=== PATIENT | male | born 1945 | race Caucasian/White ===

== ENCOUNTER → 2016-05-02 | Outpatient (CLI) | payer OTHER | LOC: SBRMNEURO 20:00 | PROVIDERS: ATTEND Psychiatry & Neurology Sleep Medicine | DX: G47.33 Obstructive sleep apnea (adult) (pediatric) (principal); G47.61 Periodic limb movement disorder ==

== ENCOUNTER 2018-03-25 11:24 | Inpatient (IN) | payer OTHER ==
[2018-03-25] MEDS ORDERED: TEMAZEPAM 15 MG CAP PO PRN ×2 (11:35→17:38)
[2018-03-25] MEDS ORDERED: diphenhydrAMINE 25 MG CAP PO ONE ×2 (11:35→12:02)
[2018-03-25] MEDS ORDERED: ACETAMINOPHEN 325 MG TAB PO PRN (11:35)
[2018-03-25] MEDS ORDERED: ASPIRIN EC 325 MG TAB PO ONE ×2 (11:35→12:03)
[2018-03-25] MEDS ORDERED: DIAZEPAM 5 MG TAB PO ONE (11:35)
[2018-03-25] MEDS ORDERED: NS 1,000 ML IV SCH ×2 (11:35→17:45)
[2018-03-25] MEDS ORDERED: FAMOTIDINE 20 MG TAB PO ONE (11:35)
[2018-03-25] MEDS ORDERED: NITROGLYCERIN 0.4 MG BTL SL PRN (11:35)
[2018-03-25] MEDS ORDERED: FAMOTIDINE 20 MG TAB ONE (12:03)
[2018-03-25] MEDS ORDERED: DIAZEPAM 5 MG TAB ONE (12:03)
[2018-03-25 12:11] LABS: PLATELET COUNT 223 10^3/uL (150-400)
[2018-03-25 12:22] LABS: INR 0.97 (0.83-1.16); PROTIME(PATIENT) 13.1 SEC (12.0-15.0)
[2018-03-25] MEDS ORDERED: VERAPAMIL 5 MG/2 ML VIAL ONE (13:54)
[2018-03-25] MEDS ORDERED: LIDOCAINE 1% 300 MG/30 ML SDV ONE (13:54)
[2018-03-25] MEDS ORDERED: fentaNYL 100 MCG/2 ML INJ ONE ×2 (13:54→15:12)
[2018-03-25] MEDS ORDERED: MIDAZOLAM 2 MG/2 ML VIAL ONE ×2 (13:54→15:20)
[2018-03-25] MEDS ORDERED: HEPARIN 10,000 UNIT/10 ML MDV (1,000 UNIT/ML) ONE (13:55)
[2018-03-25] MEDS ORDERED: IOPAMIDOL (ISOVUE-370) 150 ML BTL IV ONE (13:55)
--- NOTE | 2018-03-25 14:30 | PDPROPOC ---
Sedation Plan of Care Sedation Plan of Care: vital signs stable, mental status noted, patient educated of risks, benefits, alternatives, patient can tolerate sedation ASA Classification: ASA 3 Planned drugs: fentanyl, midazolam Mallampati Score: Class 2 Mallampati Reference Image: Patient passed 3-3-2 rule?: Yes
--- NOTE | 2018-03-25 14:34 | PDHPUP ---
History & Physical Update H&P update statement: This history and physical update is based on an assessment of the patient which was completed after admission or registration (within 24 hours), but prior to the surgery/procedure. H&P update: H&P reviewed & patient examined, no change in patient's condition since H&P completed
--- NOTE | 2018-03-25 14:38 | PDDXCAT ---
Diagnostic Cath Note - . Date: 03/25/18 Cad Administrator: Jean Claude Indication: CCC Class III and IV angina on medical treatment, other ( intermittent risk stress test) - Procedure Access: left wrist Procedure: left heart catheterization, coronary angiography - Materials Left Heart Cath size: 5F Left Heart Cath materials: JL3.5, JR4.0 - Findings-Left Heart Catheterization LM: The left main is 5mm in size and bifurcates into a LAD and Circumflex system. There is a 40% stenosis in the mid left main vessel. LAD: The LAD is a 3 mm vessel proximally with a 40-50% stenosis of the proximal vessel. There is a robust collateral to the PDA. There is JOSH III flow to the distal vessel. LCX: The left circumflex is a 3.5 mm vessel and gives rise to an important obtuse marginal branch no flow limiting obstruction is identiifed. RCA: The right coronary artery is dominant. There is a 99% obstruction in the RCA distal to the PLV. There is JOSH I flow. There is incomplete opacification of the distal vessel likely secondary to competitive flow to the distal RCA. EDP: 14mmHg LVEF: 75% Wall motion: On the LV gram there is normal LV systolic function. The EF is 75% . There are no resting segmental wall motion abnormalities. 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 There is a 5- 10mm gradient on pullback across the aortic valve. There is no evidence of mo dissection or aneurysm formation of the thoracic aorta. - Findings-Right Heart Catheterization AO: Complications: An acute closure of the RV marginal branch after deployment of the stent. Estimated blood loss: <50ml Closure method: TR Band Assessment: The patient has a dominant right coronary system with a tight 99% lesion in the mid segment of the RCA near the take off of a small RV branch. The RCA is collateralized from the distal LAD likely secondary to a chronic obstruction in the RCA. Plan: The patient was orally bolused with Effient 60mg and should receive 10mg daily along with Aspirin 81 mg to be continued for be continued for at least 1 year following drug eluting stent implantation. No elective surgery for the first 3 months. Decisions to stop dual antiplatelet therapy before 1 year should involve our office [facility] . Intervention: A 5 Korean JR4 guiding catheter was used for guide catheter support. A 0.014" 180 cm Intuition Wire was advanced across the lesion in question under direct fluoroscopic and angiographic guidance. A 2.5 x 12mm Emerge balloon was advanced over the lesion in the distal RCA and was stented with a 4.0 x 12mm Synergy drug eluting stent. After deployment of the stent there was an acute closure of the RV branch. A 4.0 x 32mm Synergy stent was then deployed to the Proximal RCA in the event that there had been a guide or stent deployment related dissection. There was evidence of a probable dissection of the RCA distal to the first stent. There was a 4.0 x 12m Synergy stent deployed to the mid RCA at the site of arterial dissection. There was 0% residual post stent implantation with improvement in flow from JOSH I to JOSH III flow post stent implantation. The patient after stent deployment became immediately unstable with bradycardia and hypotension requiring atropine a temporary pacer and IV saline fluid resuscitation for probable RV injury as well as immediate Dopamine support. There were EKG changes suggestive of inferior injury with right sided leads suggestive of RV infarction. The echo showed RV dysfunction and inferior LV hypokinesis. post stent implantation IVUS shoed that the stents were deployed adequately with no evidence of proximal or distal dissection and there was JOSH III flow to the distal RCA PDA and PLV branches. The patient will be admitted to the ICU in serious but stable condition. Troponins will be trended for diagnostic purposes as well as EKG BNP levels, and he will be carefully monitored for tachy and azeb dysrhythmia.
[2018-03-25] MEDS ORDERED: IOPAMIDOL (ISOVUE-300) 150 ML BTL ONE (15:27)
[2018-03-25] MEDS ORDERED: NITROGLYCERIN 1,500 MCG/15 ML VIAL MISC ONE (15:39)
--- NOTE | 2018-03-25 15:55 | CPEKG ---
Test Reason : OPEN Blood Pressure : / mmHG Vent. Rate : 062 BPM Atrial Rate : 062 BPM P-R Int : 174 ms QRS Dur : 093 ms QT Int : 419 ms P-R-T Axes : 070 063 071 degrees QTc Int : 426 ms Sinus rhythm Confirmed by Itz Conklin ([id number]) on 03/25/2018 3:55:23 PM Referred By: Confirmed By:Itz Conklin
[2018-03-25] MEDS ORDERED: PRASUGREL HCL 10 MG TAB ONE (16:13)
[2018-03-25] MEDS ORDERED: ONDANSETRON 4 MG/2 ML VIAL IVP PRN (17:25)
[2018-03-25] MEDS ORDERED: HYDROCODONE/APAP 5/325 TAB PO PRN (17:38)
[2018-03-25] MEDS ORDERED: LORazepam 2 MG/ML INJ IVP PRN (17:38)
[2018-03-25] MEDS ORDERED: ATROPINE SULFATE 1 MG/10 ML SYR IVP PRN (17:38)
[2018-03-25] MEDS ORDERED: PRASUGREL HCL 10 MG TAB PO ONE (17:38)
[2018-03-25] MEDS ORDERED: FLUTICASONE NASAL 120 SPRAYS/16 GM MDI EACHNARE PRN (17:53)
[2018-03-25 18:47] LABS: CREATINE KINASE 78 IU/L (0-224)
--- NOTE | 2018-03-25 20:07 | PDMN ---
Medical Necessity Medical necessity: MCG M230 PR: 2 days OP: LHC, angio, ELIF to RCA X 2
[2018-03-25] MEDS ORDERED: ATORVASTATIN CALCIUM 40 MG TAB PO SCH (21:00)
[2018-03-25] MEDS ORDERED: PRAVASTATIN SODIUM 20 MG TAB PO SCH (21:00)
[2018-03-25] MEDS: MELATONIN 3 MG TAB PO SCH (22:57)
[2018-03-25] MEDS: FAMOTIDINE 20 MG TAB PO SCH (22:57)
[2018-03-26 00:32] LABS: CREATINE KINASE 207 IU/L (0-224)
[2018-03-26 06:14] LABS: PLATELET COUNT 191 10^3/uL (150-400)
[2018-03-26 06:28] LABS: CREATINE KINASE 393 IU/L (0-224)
[2018-03-26] MEDS: FAMOTIDINE 20 MG TAB PO SCH ×2 (07:59→21:21)
--- NOTE | 2018-03-26 09:53 | CPEKG ---
Test Reason : OPEN Blood Pressure : / mmHG Vent. Rate : 063 BPM Atrial Rate : 064 BPM P-R Int : 199 ms QRS Dur : 093 ms QT Int : 429 ms P-R-T Axes : 080 074 073 degrees QTc Int : 440 ms Sinus rhythm Confirmed by Itz Conklin ([id number]) on 03/26/2018 9:52:53 AM Referred By: Confirmed By:Itz Conklin
--- NOTE | 2018-03-26 09:57 | CPEKG ---
Test Reason : OPEN Blood Pressure : / mmHG Vent. Rate : 054 BPM Atrial Rate : 054 BPM P-R Int : 178 ms QRS Dur : 091 ms QT Int : 404 ms P-R-T Axes : 070 060 064 degrees QTc Int : 383 ms Sinus rhythm Minimal ST elevation, inferior leads Confirmed by Itz Conklin ([id number]) on 03/26/2018 9:56:38 AM Referred By: Confirmed By:Itz Conklin
[2018-03-26] MEDS: PANTOPRAZOLE SODIUM 40 MG TAB PO SCH ×2 (10:02→21:21)
[2018-03-26] MEDS: PRASUGREL HCL 10 MG TAB PO SCH (10:03)
[2018-03-26] MEDS: buPROPion XL 150 MG TAB PO SCH (10:03)
[2018-03-26] MEDS: PRAVASTATIN SODIUM 20 MG TAB PO SCH (10:03)
[2018-03-26] MEDS: ASPIRIN EC 325 MG TAB PO SCH (10:03)
--- NOTE | 2018-03-26 13:59 | ASMTCMCOM ---
CM Note CM Note Notes: 03/26/2018 Case Management Note Pt admitted for left heart cath and coronary angiography. There are no identified case management d/c needs d/t pt age, independence with ADL's prior to admission and marital status. There are no therapy evals ordered at this time. Anticipating independent discharge with follow up as directed. Case Management d/c poc: to be determined. Case Management to follow. Date Signed: 03/26/2018 01:58 PM Electronically Signed By:Gladis Castillo RN
--- NOTE | 2018-03-26 16:52 | PDCARPN ---
Cardiology Progress Note Chief Complaint: angina, now post stent for RCA obstruction Assessment/Plan: Assessment:Patient with abnormal stress test and angina, underwent RCA stent complicated by hypotension, transient heart block and ST elevation as well as compromise of flow to the RV marginal branch with right heart stunning and inferior wall motion abnormalities on cath. I have reviewed the echo from today with resolution of the wall motion abnormalities. The troponin peaked at 7.6 ng/ ml consistent with minimal damage to the myocardium. His rhythm on tele is stable and the art line and the temp pacing wire were removed in less than 25 minutes of bedside time Plan:As above. 03/26/18 16:44 Subjective: I feel great. Reviewed/Discussed With: family, hospitalist, multidisciplinary team Time Spent with Patient: greater than 25 minutes Time Spent with Patient: Greater than 25 minutes spent on this patients care, greater than 50% of time spent counseling, educating, and coordinating care regarding the above mentioned plan. Objective: Vital Signs (8 Hrs) Temp Pulse Resp BP Pulse Ox 03/26/18 15:36 36.5 C 62 17 106/62 97 03/26/18 14:00 65 16 110/67 97 03/26/18 12:00 56 L 20 111/70 100 03/26/18 10:00 55 L 18 110/65 99 03/26/18 09:00 57 L 17 122/56 H 99 Intake/Output (24 Hrs) 03/25/18 03/26/18 03/27/18 05:59 05:59 05:59 Intake Total 1692.4 Output Total 2300 Balance -607.6 Intake: Oral (ml) 700 IV Infused (ml) 992.4 DOPamine/DEXTROSE 250 ml 116.4 @ Titrate IV CONT CANDIDO Rx# :[id number] Ns 1,000 ml @ 75 mls/hr 876 IV CONT CANDIDO Rx#: [id number] Output: Urine (ml) 2300 Catheter 2200 Urinal 100 Other: Weight 70.8 kg 88.9 kg Bladder Scan Volume (ml) Urinal 700 Post Void Residual Scan Volume (ml) Catheter 79 Result Diagrams: 03/26/18 05:55 03/26/18 05:55 Cardiac Labs: Cardiac Lab Results (72 Hrs) 03/26/18 03/26/18 03/26/18 11:35 05:55 00:10 CK-MB (CK-2) Fraction 50.90 H 22.70 H Troponin I 7.060 H 7.600 H 3.350 H 03/25/18 18:20 CK-MB (CK-2) Fraction 2.64 Troponin I 0.140 H EKG: EKG changes have resolved. Telemetry: occasional extrasystoles one 3 beat run Echocardiogram: No new wall motion abnormalities. - Physical Exam Constitutional: WDWN, no apparent distress Eyes: PERRL, EOMI, anicteric sclera Ears, Nose, Mouth, Throat: moist mucous membranes Cardiovascular: regular rate and rhythm, no murmurs, no rubs, no gallops Respiratory: clear to auscultate bilat Gastrointestinal: normoactive bowel sounds Skin: no rashes Musculoskeletal: no muscular tenderness Neurologic: AAOx3 Psychiatric: cooperative, following commands - . Pending Discharge Within 24 Hours: Yes Pending Discharge Within 48 Hours: No ICD10 Worksheet Patient Problems: Problems Problem Status Onset Coronary artery disease Acute - ICD10 Problem Qualifiers (1) Coronary artery disease
--- NOTE | 2018-03-26 17:20 | ECHO ---
[email or web address] [address] Main: [phone] Fax: Transthoracic Echocardiogram Name: HERNAN SCHWARZ MR#: [id number] Study Date: 03/26/2018 Study Time: 08:31 AM Date of : 1945 Age: 72 year(s) Height: 177.8 cm (70 in.) Weight: 88.45 kg (195 lb.) BSA: 2.06 m2 Gender: Male Examination: Echo Indication: S/P PCI RCA Image Quality: Contrast: Requested by: Robel Terrazas BP: 106 mmHg/67 mmHg Heart Rate: Rhythm: Normal sinus rhythm Indication: S/P PCI RCA Procedure Staff Ground Worker: Obie Moreau RDCS Reading Physician: Bobby Silverio MD Requesting Provider: Measurements: Chambers Valvular Assessment AV/MV Valvular Assessment TV/PV Normal Normal Normal Name Value Range Name Value Range Name Value Range Ao Milady (MM): 3.7 cm (2.2 cm-3.7 TR Vmax: 2.42 mm/s ( - ) cm) TR PGmax: 23 mmHg ( - ) IVSd (2D): 0.7 cm (0.6 cm-1.1 syst. PAP: 28 mmHg ( - ) cm) PV Vmax: 0.86 m/s (0.6 m/s-0.9 LVDd (2D): 5.1 cm (4.2 cm-5.9 m/s) cm) PV PGmax: 3 mmHg ( - ) LVDs (2D): 3.2 cm (2.1 cm-4 cm) LVPWd (2D): 0.8 cm (0.6 cm-1 cm) LVEF (2D): 65 (>=54 %) Continued Measurements: Valvular Assessment TV/PV Name Value CVP (est.): 5 mmHg Findings: Left Ventricle: Normal size left ventricle. No LV hypertrophy. Normal global systolic LV function. EF is 65 %. No regional wall motion abnormality. Right Ventricle: Normal size right ventricle. Normal RV function. There is no pacemaker lead noted in the right ventricle. Patient: HERNAN SCHWARZ Study Date: 03/26/2018 Page 1 of 2 08:31 AM Left Atrium: The left atrium is normal in size. Right Atrium: The right atrium is normal in size. Mitral Valve: The mitral valve is normal in appearance and function. There is no significant mitral valve regurgitation. Aortic Valve: The aortic valve is normal in appearance and function. There is no aortic valve regurgitation. Tricuspid Valve: The tricuspid valve appears normal. Trivial tricuspid valve regurgitation. The pulmonary artery pressure is normal. Pulmonic Valve: The pulmonic valve is normal in appearance and function. Aorta: The aorta is normal. Pericardium: No pericardial effusion. (No Signature Object) Patient: HERNAN SCHWARZ Study Date: 03/26/2018 Page 2 of 2 08:31 AM [id number]
[2018-03-26] MEDS: MELATONIN 3 MG TAB PO SCH (21:21)
--- NOTE | 2018-03-26 23:04 | CPEKG ---
Test Reason : Post heart cath Blood Pressure : / mmHG Vent. Rate : 083 BPM Atrial Rate : 083 BPM P-R Int : 183 ms QRS Dur : 105 ms QT Int : 410 ms P-R-T Axes : 077 082 089 degrees QTc Int : 482 ms Sinus rhythm Inferior infarct, acute (RCA) Probable RV involvement, suggest recording right precordial leads Confirmed by Itz Conklin ([id number]) on 03/26/2018 11:03:39 PM Referred By: Confirmed By:Itz Conklin
--- NOTE | 2018-03-26 23:04 | CPEKG ---
Test Reason : chest pain s/p stent Blood Pressure : / mmHG Vent. Rate : 083 BPM Atrial Rate : 083 BPM P-R Int : 184 ms QRS Dur : 108 ms QT Int : 417 ms P-R-T Axes : 073 082 089 degrees QTc Int : 490 ms Sinus rhythm Inferior infarct, acute (RCA) Probable RV involvement, suggest recording right precordial leads Confirmed by Itz Conklin ([id number]) on 03/26/2018 11:03:47 PM Referred By: Confirmed By:Itz Conklin
[2018-03-27] MEDS: FAMOTIDINE 20 MG TAB PO SCH (08:10)
[2018-03-27] MEDS: PANTOPRAZOLE SODIUM 40 MG TAB PO SCH (08:10)
[2018-03-27] MEDS: PRAVASTATIN SODIUM 20 MG TAB PO SCH (08:10)
[2018-03-27] MEDS: buPROPion XL 150 MG TAB PO SCH (08:10)
[2018-03-27] MEDS: ASPIRIN EC 325 MG TAB PO SCH (08:15)
[2018-03-27] MEDS: PRASUGREL HCL 10 MG TAB PO SCH (08:15)
[2018-03-27 15:32] VITALS: BP 112/89
--- NOTE | 2018-03-27 17:03 | ASMTLACE ---
LACE Length of stay for Answers: 2 days current admission Acuity / Level of Answers: Yes Care: Did the patient have an inpatient admission? Comorbidities - select Answers: Previous myocardial all that apply infarction # of Emergency department Answers: 0 visits in the last 6 months Score: 6 Date Signed: 03/27/2018 05:02 PM Electronically Signed By:TARUN Mcdonald
--- NOTE | 2018-03-27 17:04 | ASMTCMCOM ---
CM Note CM Note Notes: Pt is being d/c'd today. Pt does not have any needs from CM. CM available for changes. Date Signed: 03/27/2018 05:04 PM Electronically Signed By:TARUN Mcdonald
--- NOTE | 2018-03-27 17:27 | GDS ---
ADMISSION DIAGNOSIS: 1. Angina pectoris. 2. Coronary artery disease. 3. Abnormal stress test. DISCHARGE DIAGNOSIS: 1. Coronary artery disease status post percutaneous transluminal coronary angioplasty and stent plac ement of the [place] right coronary artery with the use of 3 overlapping stents in the right coronary artery as detailed in the cardiac procedure note. 2. Dyslipidemia. 3. Angina pectoris, resolved. 4. Coronary artery disease. HISTORY OF PRESENT ILLNESS: For detailed history of present illness, please see the recently dictate galilea Stevenson and Pam. Briefly, this is a 72-year-old male with a history of chest discomfort, pressure, and tig htness that occurs with exertion. He underwent a stress test, which was found to be abnormal. He wa s admitted to the hospital electively for cardiac catheterization, found to have a critical lesion of the RCA proper with inflation and stenting of the vessel. There was a side branch occlusion of RV b ranch associated with hypotension. Brief high-grade AV block lasting less than 10 seconds or so with hypotension requiring atropine and an emergent temporary pacer from the right groin approach. The p atient had evidence of probable proximal and distal dissection, which were treated with stents in ove rlapping fashion with subsequent resolution of the patient's chest pain and transient ST-segment elev ation as well as echocardiographic evidence of myocardial injury. His troponin peaked to 7.6. HOSPITAL COURSE: The patient was admitted ICU on a precautionary measure. The temporary wire was di scontinued on the following hospital day. He was kept for another 24 hours overnight. His heart rhy thm monitored. At the time of discharge from the hospital he is medically stable and ready for disch arge home. His distal pulses are intact and his groin and wrist site are healing nicely without evid ence of significant hematoma. DISCHARGE MEDICATIONS: Are to include Effient 10 mg p.o. daily. Pravastatin 20 mg p.o. daily. Zant ac 150 p.o. twice daily, aspirin 81 mg daily. He is to take the combination of Effient and aspirin f or at least 12 months following stent implantation. He could be considered for aspirin and Plavix in combination after 30 days of aspirin and Effient therapy. He is to continue his Pravachol as well a s Protonix 20 mg p.o. twice daily, Wellbutrin 150 p.o. daily, and ranitidine 150 p.o. twice daily. He is also on Flonase spray which can be continued. He takes a variety of different medications that i nclude omega-3 fatty acids. His isosorbide mononitrate can be discontinued unless he has recurrent a ngina, Zyrtec 10 mg as needed for allergies, vitamin D3, and vitamin B12 as directed. His activity is to be limited by groin and wrist precautions. He is to follow up with Dr. Barnes as s jaime and return to the emergency department should he experience chest pain, pressure, tightness, palpitations, syncope, near syncope, or other clinical symptoms of concern. /[id number]/MODL
--- NOTE | 2018-04-01 10:28 | PQFORM ---
PHYSICIAN QUERY FORM Needs Your Response This query form is being sent to you to assure this patient record is coded properly. Please respond to the question below: DERRICK BARGE OPERATOR QUESTION: Dear Dr. Silverio, On your discharge summary you indicate the brief high-grade AV block and hypotension which resulted in transient ST-segment elevation as well as echocardiographic evidence of myocardial injury and transient troponin elevation peaking at 7.6. Based on these clinical findings and your professional judgment, can a diagnosis of inferior ST- segment myocardial infarction be added to the discharge summary? yes no other I THINK IT WOULD BE BEST TO DESCRIBE A SUBENDOCARDIAL MYOCARDIAL INFARCTION THERE WAS TRANSIENT VESSEL CLOSURE DURING THE PROCEDURE...MIGHT BE BETTER FOR CODING PURPOSES BUT WORSE FOR COMPLICATION RATE OF CATH PROCEDURE.... THE ST SEGMENT CHANGES ON EKG WERE ALSO TRANSIENT AND RESOLVED WITHOUT FURTHER INTERVENTION Thank you for clarifying, SHARI Louis HIM Coding INSTRUCTIONS FOR RESPONSE: Answer question by clicking on the "Edit Document" button. Move cursor to area below the stars. When complete, hit "Save." Click on the "Sign" button, then click "Sign" again. Type in your PIN and hit "Enter." MTDD
== END 2018-03-27 18:08 | disposition home or self-care (01) | DRG 247 ==
LOC: FCATH 11:24 → OBSVTOIN 16:53 → F2N 16:53 → F2W 03-26 18:25
PROVIDERS: ADMIT Internal Medicine Cardiovascular Disease; ATTEND Internal Medicine Cardiovascular Disease
PROC: B2151ZZ Fluoroscopy of Left Heart using Low Osmolar Contrast (ICD-10-PCS; principal; 2018-03-25)
PROC: B2111ZZ Fluoroscopy of Multiple Coronary Arteries using Low Osmolar Contrast (ICD-10-PCS; principal; 2018-03-25)
PROC: 027036Z Dilation of Coronary Artery, One Artery with Three Drug-eluting Intraluminal Devices, Percutaneous Approach (ICD-10-PCS; principal; 2018-03-25)
PROC: 4A023N7 Measurement of Cardiac Sampling and Pressure, Left Heart, Percutaneous Approach (ICD-10-PCS; principal; 2018-03-25)
DX: I21.4 Non-ST elevation (NSTEMI) myocardial infarction (principal); I25.119 Atherosclerotic heart disease of native coronary artery with unspecified angina pectoris; I44.30 Unspecified atrioventricular block; E78.5 Hyperlipidemia, unspecified; G47.33 Obstructive sleep apnea (adult) (pediatric); K21.9 Gastro-esophageal reflux disease without esophagitis; Z82.49 Family history of ischemic heart disease and other diseases of the circulatory system
CPT/HCPCS: C1725; C1753; C1769; C1874; C1887; C9600; J1644; J2250; J2405; J3010; Q9967

== ENCOUNTER 2018-08-22 05:31 | Day surgery (SDC) | payer OTHER | END 2018-08-22 10:49 | disposition home or self-care (01) | LOC: FSGY 05:31 ==